=== PATIENT | male | born 1960 | race African-American/Black ===

== ENCOUNTER 2016-08-01 16:35 | Inpatient (IN) | payer BC, OTHER ==
[~2016-08-01] VITALS: Ht 185.4 cm; Wt 70.0 kg
[2016-08-01] MEDS ORDERED: LEVOFLOXACIN 750MG 150 ML IV ONE (17:00)
[2016-08-01] MEDS ORDERED: MORPHINE SULF INJ 2 MG/ML SYRINGE 1ML IV PRN (17:30)
[2016-08-01] MEDS ORDERED: NITROGLYCERIN 0.4 MG SL TAB SL PRN (17:30)
[2016-08-01] MEDS ORDERED: SODIUM CHLORIDE 0.9% 1,000 ML IV ONE ×2 (17:30→18:00)
[2016-08-01 17:46] LABS: Basophils # (auto) 0.1 uL; Basophils % (auto) 0.5 % (0.0-2.0); DEFINITIVE VIEW TRANSMISSION; Eosinophils # (auto) 0 uL; Eosinophils % (auto) 0.1 % (0.0-7.0); Hematocrit 41.4 % (41.0-53.0); Hemoglobin 12.8 g/dL (13.5-17.5); Lymphocytes # (auto) 0.5 uL; Lymphocytes % (auto) 3.5 % (10.0-50.0); Mean Corpuscular Hemoglobin 30.2 pg (28.0-32.0); Mean Corpuscular Hgb Conc. 30.8 g/dL (32.0-36.0); Mean Platelet Volume 8.8 fL (7.4-10.4); Monocytes # (auto) 1.5 uL; Monocytes % (auto) 9.7 % (0.0-12.0); Neutrophils # (auto) 13.1 uL; Neutrophils % (auto) 86.2 % (37.0-80.0); Platelet Count (auto) 378 10^3/uL (140-450); Red Cell Distribution Width 16.1 % (11.6-16.0); White Blood Cell 15.1 10^3/uL (4.4-10.8)
[2016-08-01 17:47] VITALS: BP 90/55
[2016-08-01] MEDS ORDERED: FAMOTIDINE (10MG/ML) 2ML VL IV ONE (18:00)
[2016-08-01 18:04] LABS: Albumin 3.7 g/dL (3.4-5.0); BUN/Creatinine Ratio 6.6; Calcium 7.9 mg/dL (8.5-10.1); Magnesium 2.1 mg/dL (1.6-2.6); Potassium 4.9 mmol/L (3.5-5.1)
[2016-08-01] MEDS: SODIUM CHLORIDE 0.9% 1,000 ML IV SCH (18:06)
[2016-08-01 18:08] LABS: Acetaminophen < 2.0 ug/mL (10-30); Salicylate < 1.7 mg/dL (2.8-20.0)
[2016-08-01 18:31] LABS: Urine Bilirubin Negative (Negative); Urine Blood Negative /uL (Negative); Urine Color Yellow (Yellow); Urine Glucose Normal (Normal); Urine Hyaline Cast MOD /lpf (0 - 2); Urine Ketone Negative (Negative); Urine Mucus FEW (None Seen); Urine Nitrite Negative (Negative); Urine RBC 2 /hpf (0 - 3); Urine Squamous Epithelial Cell FEW /hpf (<5); Urine Urobilinogen Normal (Negative)
[2016-08-01 18:34] LABS: Bilirubin, Total 0.1 mg/dL (0.2-1.0); Total Protein 6.9 g/dL (6.4-8.2)
[2016-08-01] MEDS: PROPOFOL 100 ML IV SCH (19:09)
[2016-08-01] MEDS ORDERED: cefTRIAXone 1GM/50ML D5W 50 ML IV ONE (19:30)
[2016-08-01 19:46] VITALS: BP 97/59
[2016-08-01 19:55] LABS: B-Type Natriuretic Peptide 168.46 pg/mL (0-100); Temperature: 21.7 C (20.0-25.0)
[2016-08-01] MEDS ORDERED: ENOXAPARIN SOD 80 MG/0.8ML SYRINGE SC SCH (20:00)
[2016-08-01] MEDS ORDERED: NOREPINEPHRINE BITARTRATE 250 ML IV ONE (20:34)
[2016-08-01] MEDS: NOREPINEPHRINE BITARTRATE 250 ML IV SCH (21:00)
[2016-08-01 21:55] VITALS: BP 89/52
[2016-08-01] MEDS: ATORVASTATIN 20 MG TAB PO SCH (22:00)
[2016-08-01 22:01] VITALS: BP 97/59
[2016-08-01] MEDS ORDERED: SODIUM BICARBONATE 8.4 % INJ 50ML VIAL IV ONE (23:15)
[2016-08-02] VITALS (34 sets, daily range): BP systolic 89–151; BP diastolic 44–89
[2016-08-02] MEDS: SODIUM CHLORIDE 0.9% 1,000 ML IV SCH ×2 (00:45→07:29)
[2016-08-02 01:52] LABS: Albumin 2.9 g/dL (3.4-5.0); BUN/Creatinine Ratio 9.2; Calcium 6.9 mg/dL (8.5-10.1); Potassium 4.4 mmol/L (3.5-5.1)
[2016-08-02 01:54] LABS: Bilirubin, Total 0.2 mg/dL (0.2-1.0); Total Protein 5.4 g/dL (6.4-8.2)
[2016-08-02 06:41] LABS: Basophils # (auto) 0 uL; Basophils % (auto) 0.2 % (0.0-2.0); Eosinophils # (auto) 0.1 uL; Eosinophils % (auto) 0.7 % (0.0-7.0); Hematocrit 35.7 % (41.0-53.0); Hemoglobin 11.1 g/dL (13.5-17.5); Lymphocytes # (auto) 1.1 uL; Lymphocytes % (auto) 8.6 % (10.0-50.0); Mean Corpuscular Hemoglobin 30.1 pg (28.0-32.0); Mean Platelet Volume 8.2 fL (7.4-10.4); Monocytes # (auto) 1.3 uL; Monocytes % (auto) 9.9 % (0.0-12.0); Neutrophils # (auto) 10.4 uL; Neutrophils % (auto) 80.6 % (37.0-80.0); Platelet Count (auto) 328 10^3/uL (140-450); Red Cell Distribution Width 15.7 % (11.6-16.0); White Blood Cell 12.9 10^3/uL (4.4-10.8)
[2016-08-02 07:27] LABS: Albumin 2.7 g/dL (3.4-5.0); BUN/Creatinine Ratio 10.1; Bilirubin, Total 0.2 mg/dL (0.2-1.0); Calcium 7.4 mg/dL (8.5-10.1); Potassium 4.4 mmol/L (3.5-5.1); Total Protein 5.5 g/dL (6.4-8.2)
[2016-08-02] MEDS: cefTRIAXone 1GM/50ML D5W 50 ML IV SCH (09:24)
[2016-08-02] MEDS ORDERED: FAMOTIDINE (10MG/ML) 2ML VL IV SCH (10:00)
[2016-08-02] MEDS ORDERED: ENOXAPARIN SOD 80 MG/0.8ML SYRINGE SC SCH (10:00)
[2016-08-02] MEDS ORDERED: FUROSEMIDE 40 MG/4 ML VIAL IV ONE (11:30)
[2016-08-02] MEDS ORDERED: SODIUM CHLORIDE 0.9% 1,000 ML IV SCH (12:30)
[2016-08-02] MEDS ORDERED: DEXTROSE (50%) 50ML SYRG IV PRN (12:30)
[2016-08-02] MEDS ORDERED: ACETAMINOPHEN 650 mg PER 20 mL UD PO PRN (12:30)
[2016-08-02] MEDS: LORazepam 2MG/ML-1ML VIAL IV PRN (14:03)
[2016-08-02] MEDS ORDERED: DOPamine 1600MCG/ML 250 ML IV ONE (16:41)
[2016-08-02] MEDS ORDERED: ATROPINE SULF 0.5 MG/5ML SYR IV ONE (16:45)
[2016-08-02] MEDS ORDERED: DOPamine 1600MCG/ML 250 ML IV PRN (16:45)
[2016-08-02] MEDS: InsuLIN REG 1unit/0.01ml Soln (100units/ml) SC SCH (18:00)
[2016-08-02] MEDS: ACCU-CHEK COMFORT CURVE STRIP VI SCH (18:00)
[2016-08-02] MEDS: NOREPINEPHRINE BITARTRATE 250 ML IV SCH (22:00)
[2016-08-02] MEDS: ATORVASTATIN 20 MG TAB PO SCH (22:31)
[2016-08-03] VITALS (107 sets, daily range): BP systolic 88–141; BP diastolic 39–75
[2016-08-03 04:05] LABS: Basophils # (auto) 0 uL; Basophils % (auto) 0.2 % (0.0-2.0); Eosinophils # (auto) 0.4 uL; Eosinophils % (auto) 3.1 % (0.0-7.0); Hematocrit 35.1 % (41.0-53.0); Lymphocytes # (auto) 0.7 uL; Lymphocytes % (auto) 5.9 % (10.0-50.0); Mean Corpuscular Hemoglobin 30.4 pg (28.0-32.0); Mean Corpuscular Hgb Conc. 31.4 g/dL (32.0-36.0); Mean Corpuscular Volume 96.7 fL (80.0-100.0); Mean Platelet Volume 8.4 fL (7.4-10.4); Monocytes # (auto) 0.7 uL; Monocytes % (auto) 6.3 % (0.0-12.0); Neutrophils # (auto) 9.7 uL; Neutrophils % (auto) 84.5 % (37.0-80.0); Platelet Count (auto) 306 10^3/uL (140-450); White Blood Cell 11.5 10^3/uL (4.4-10.8)
[2016-08-03 04:23] LABS: Albumin 2.7 g/dL (3.4-5.0); BUN/Creatinine Ratio 10.6; Calcium 8.4 mg/dL (8.5-10.1); Potassium 3.7 mmol/L (3.5-5.1)
[2016-08-03 04:25] LABS: Bilirubin, Total 0.4 mg/dL (0.2-1.0); Total Protein 5.7 g/dL (6.4-8.2)
[2016-08-03] MEDS: InsuLIN REG 1unit/0.01ml Soln (100units/ml) SC SCH ×4 (06:00→17:22)
[2016-08-03] MEDS: ACCU-CHEK COMFORT CURVE STRIP VI SCH ×4 (06:00→17:22)
[2016-08-03] MEDS: FAMOTIDINE (10MG/ML) 2ML VL IV SCH (09:34)
[2016-08-03] MEDS: cefTRIAXone 1GM/50ML D5W 50 ML IV SCH (09:35)
[2016-08-03] MEDS: ENOXAPARIN SOD 40 MG/0.4 ML SYRINGE SC SCH (09:35)
[2016-08-03] MEDS: SODIUM CHLORIDE 0.9% 1,000 ML IV SCH ×2 (11:22→22:06)
[2016-08-03] MEDS: PROPOFOL 100 ML IV SCH ×2 (13:46→20:31)
[2016-08-03] MEDS: NOREPINEPHRINE BITARTRATE 250 ML IV SCH (22:00)
[2016-08-03] MEDS: ATORVASTATIN 20 MG TAB PO SCH (22:06)
[2016-08-04] VITALS (63 sets, daily range): BP systolic 97–182; BP diastolic 47–145
[2016-08-04] MEDS: ACCU-CHEK COMFORT CURVE STRIP VI SCH ×4 (00:29→18:00)
[2016-08-04] MEDS: PROPOFOL 100 ML IV SCH (02:00)
[2016-08-04 05:11] LABS: BUN/Creatinine Ratio 11.9; Calcium 8.4 mg/dL (8.5-10.1); Potassium 3.4 mmol/L (3.5-5.1)
[2016-08-04] MEDS: InsuLIN REG 1unit/0.01ml Soln (100units/ml) SC SCH ×4 (06:00→18:00)
[2016-08-04] MEDS: SODIUM CHLORIDE 0.9% 1,000 ML IV SCH (08:30)
[2016-08-04] MEDS: cefTRIAXone 1GM/50ML D5W 50 ML IV SCH (09:00)
[2016-08-04] MEDS: ENOXAPARIN SOD 40 MG/0.4 ML SYRINGE SC SCH (09:52)
[2016-08-04] MEDS: FAMOTIDINE (10MG/ML) 2ML VL IV SCH (09:52)
[2016-08-04] MEDS: LORazepam 2MG/ML-1ML VIAL IV PRN ×3 (11:17→20:47)
[2016-08-04] MEDS: MORPHINE SULF INJ 2 MG/ML SYRINGE 1ML IV PRN ×3 (11:42→19:54)
[2016-08-04] MEDS: PROMETHAZINE HCL 25 MG/ML 1ML IV PRN (12:31)
[2016-08-04] MEDS ORDERED: HALOPERIDOL LACTATE 5 MG/ML INJ VIAL IM PRN (13:00)
[2016-08-04] MEDS: NALBUPHINE HCL 10 MG/1ml INJECTION IM PRN ×2 (13:40→22:27)
[2016-08-04] MEDS ORDERED: ACETAMINOPHEN 650 MG RECT SUPP PR ONE (15:28)
[2016-08-04] MEDS ORDERED: ACETAMINOPHEN 650 MG RECT SUPP PR PRN (15:30)
[2016-08-04] MEDS: D5W/SOD CHL 0.45% 1,000 ML IV SCH (15:30)
[2016-08-04] MEDS ORDERED: METOPROLOL TARTRATE 1MG/1ML-5ML VIAL IV PRN (19:00)
[2016-08-04] MEDS: NOREPINEPHRINE BITARTRATE 250 ML IV SCH (20:03)
[2016-08-04] MEDS: ATORVASTATIN 20 MG TAB PO SCH (21:37)
[2016-08-05] VITALS (11 sets, daily range): BP systolic 134–174; BP diastolic 72–97
[2016-08-05] MEDS: D5W/SOD CHL 0.45% 1,000 ML IV SCH ×3 (03:14→22:58)
[2016-08-05] MEDS: LORazepam 2MG/ML-1ML VIAL IV PRN ×4 (04:00→20:00)
[2016-08-05] MEDS: InsuLIN REG 1unit/0.01ml Soln (100units/ml) SC SCH ×4 (06:00→18:00)
[2016-08-05] MEDS: ACCU-CHEK COMFORT CURVE STRIP VI SCH ×3 (06:00→11:35)
[2016-08-05] MEDS: MORPHINE SULF INJ 2 MG/ML SYRINGE 1ML IV PRN ×2 (06:01→11:05)
[2016-08-05] MEDS: cefTRIAXone 1GM/50ML D5W 50 ML IV SCH (09:39)
[2016-08-05] MEDS: FAMOTIDINE (10MG/ML) 2ML VL IV SCH (09:39)
[2016-08-05] MEDS: ENOXAPARIN SOD 40 MG/0.4 ML SYRINGE SC SCH ×2 (09:39→09:42)
[2016-08-05] MEDS ORDERED: cloNIDine 0.2 MG/24 HR PAT TD SCH (12:45)
[2016-08-05] MEDS: MORPHINE SULFATE 4 MG/ML SYRG IV PRN ×2 (14:54→22:57)
[2016-08-05] MEDS ORDERED: HALOPERIDOL LACTATE 5 MG/ML INJ VIAL IM PRN (15:45)
[2016-08-05] MEDS ORDERED: HALOPERIDOL LACTATE 5 MG/ML INJ VIAL IM ONE ×2 (15:45)
[2016-08-05] MEDS ORDERED: ACCU-CHEK COMFORT CURVE STRIP VI SCH (22:00)
[2016-08-05] MEDS: ATORVASTATIN 20 MG TAB PO SCH (22:00)
[2016-08-05] MEDS: PROMETHAZINE HCL 25 MG/ML 1ML IV PRN (22:57)
== END 2016-08-05 23:15 | disposition short-term general hospital (02) | DRG 917 ==
LOC: ER 16:49 → TELE 16:50 → ICU WEST 08-02 18:21 → TELE-WESTW 08-05 12:43
PROVIDERS: ADMIT Internal Medicine; ATTEND Hospitalist
PROC: 5A1945Z Respiratory Ventilation, 24-96 Consecutive Hours (ICD-10-PCS; principal; 2016-08-01)
PROC: 0BH17EZ Insertion of Endotracheal Airway into Trachea, Via Natural or Artificial Opening (ICD-10-PCS; 2016-08-01)
DX: T40.601A Poisoning by unspecified narcotics, accidental (unintentional), initial encounter (principal); J96.00 Acute respiratory failure, unspecified whether with hypoxia or hypercapnia; I21.4 Non-ST elevation (NSTEMI) myocardial infarction; N17.0 Acute kidney failure with tubular necrosis; G92 Toxic encephalopathy; E87.0 Hyperosmolality and hypernatremia; F31.9 Bipolar disorder, unspecified; I13.10 Hypertensive heart and chronic kidney disease without heart failure, with stage 1 through stage 4 chronic kidney disease, or unspecified chronic kidney disease; J32.9 Chronic sinusitis, unspecified; D72.829 Elevated white blood cell count, unspecified; N18.9 Chronic kidney disease, unspecified; G89.4 Chronic pain syndrome; Q85.00 Neurofibromatosis, unspecified; Y92.89 Other specified places as the place of occurrence of the external cause; Z85.46 Personal history of malignant neoplasm of prostate; Z98.890 Other specified postprocedural states
CPT/HCPCS: 31500; 36415; 36600; 51702; 70450; 71010; 71250; 80048; 80053; 80061; 80164; 80178; 80329; 81001; 82550; 82805; 82962; 83605; 83615; 83735; 83880; 84443; 84484; 85025; 85379; 85652; 86141; 87040; 87070; 87077; 87081; 87086; 87186; 87205; 93005; 93306; 93886; 93970; 94003; 95819; 96361; 96365; 96367; 96372; 96375; 96376; 99291; A4565; G0434; J0696; J1956; J2704; J3490